=== PATIENT | female | born 1985 | race Caucasian/White ===

== ENCOUNTER 2017-08-02 01:29 | Emergency (ER) | payer SELFPAY ==
[~2017-08-02] VITALS: Ht 157.5 cm; Wt 45.4 kg
--- NOTE | 2017-08-02 01:48 | Emergency Room Report ---
History of Present Illness General Chief Complaint: Behavioral Complaint Source: Patient, EMS Present Illness HPI This is a 31 year-old Kelley Hugo who refused to give her name. She call 911 with chief complaint of intoxication. She had injected some cocaine but she said it there is something wrong with it. She felt very anxious and had psychosis. She called 911. She is better now. She refuse to give a name because she did want to get into trouble. Per EMS there were drug paraphernalia at the house. No suicidal thoughts or homicidal thought. Allergies: Coded Allergies: No Known Allergies (Unverified , 08/02/17) Patient History Past Medical History: see triage record, old chart reviewed Past Surgical History: other Pertinent Family History: none Social History: Reports: smoking, drug use Last Menstrual Period: unknown Now: No Immunizations: other Reviewed Nursing Documentation: PMH: Agreed, PSxH: Agreed Nursing Documentation-PMH Past Medical History Deferred: Pt Cognitively Impaired Review of Systems Eye: Denies: eye pain, blurred vision ENT: Denies: ear pain, nose congestion, throat swelling Respiratory: Denies: cough, shortness of breath Cardiovascular: Denies: chest pain, palpitations Gastrointestinal: Denies: abdominal pain, diarrhea, nausea, vomiting Musculoskeletal: Denies: back pain, joint pain Skin: Denies: rash Neurological: Denies: headache, numbness Endocrine: Denies: increased thirst, increased urine Hematologic/Lymphatic: Denies: easy bruising All Other Systems: negative except mentioned in HPI Physical Exam Vital Signs Date Time Temp Pulse Resp B/P (MAP) Pulse Ox O2 Delivery O2 Flow Rate FiO2 08/02/17 01:14 98.1 110 18 125/81 98 Room Air vitals with tachycardia Sp02 EP Interpretation: reviewed, normal General Appearance: well appearing, no apparent distress, alert Head: normocephalic, atraumatic Eyes: bilateral eye PERRL, bilateral eye EOMI ENT: hearing grossly normal, normal pharynx Neck: full range of motion, supple, no meningismus Respiratory: chest non-tender, lungs clear, normal breath sounds Cardiovascular #1: regular rate, rhythm, no murmur Gastrointestinal: normal bowel sounds, non tender, no mass, no organomegaly, no bruit, non-distended Musculoskeletal: back normal, gait/station normal, normal range of motion, other - Mild redness to the dorsum of the left hand from injection site. No crepitance or abscess. Psychiatric: mood/affect normal Skin: warm/dry Medical Decision Making Diagnostic Impression: Primary Impression: Psychosis Qualified Codes: F23 - Brief psychotic disorder Additional Impression: Cocaine abuse ER Course Patient with psychosis secondary to drug abuse. She felt better now. Wants to go home. Still refusing to give her name. Police here to take report. Last Vital Signs Date Time Temp Pulse Resp B/P (MAP) Pulse Ox O2 Delivery O2 Flow Rate FiO2 08/02/17 01:14 98.1 110 18 125/81 98 Room Air Status: improved Disposition: HOME, SELF-CARE Condition: Stable Patient Instructions: Self-Destructive Behavior Additional Instructions: Stop using drugs. Followup with your Dr. in 7 days. Return if worse. GEE COTTRELL M.D. Aug 02, 2017 01:48
[2017-08-02 02:07] VITALS: BP 125/81
== END 2017-08-02 02:07 | disposition home or self-care (01) ==
LOC: EDBD 01:29 → EMR 01:30
DX: F14.159 Cocaine abuse with cocaine-induced psychotic disorder, unspecified (principal)
CPT/HCPCS: 99284